=== PATIENT | male | born 1965 | race African-American/Black ===

== ENCOUNTER 2019-03-29 09:13 | Inpatient (IN) | payer OTHER ==
[2019-03-29 10:00] VITALS: BMI 22.9
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
[2019-03-29] MEDS ORDERED: IBUPROFEN 400 MG TABLET (FP) PO PRN (10:43)
[2019-03-29] MEDS ORDERED: ACETAMINOPHEN 325 MG TABLET (FP) PO PRN ×2 (10:43)
[2019-03-29] MEDS ORDERED: MAG HYDROX/AL HYDROX/SIMETH 30 ML UNIT-DOSE CUP PO PRN (10:43)
[2019-03-29] MEDS ORDERED: BISMUTH SUBSALICYLATE 524 MG/30 ML UD PO PRN (10:43)
[2019-03-29] MEDS ORDERED: MAGNESIUM HYDROX 2400MG/30ML ORAL SUSPENSION 30 ML CUP PO PRN (10:43)
[2019-03-29] MEDS ORDERED: MENTHOL/PHENOL 1 EACH UD MM PRN (10:43)
[2019-03-29] MEDS ORDERED: MAGNESIUM CITRATE 300 ML BOTTLE PO PRN (10:43)
[2019-03-29] MEDS ORDERED: METHADONE HCL 10 MG TABLET (FOR DETOX USE ONLY) PO ONE (11:30)
[2019-03-29] MEDS: hydrOXYzine PAMOATE 25 MG CAPSULE (FP) PO PRN ×2 (11:50→19:06)
[2019-03-29 16:06] LABS: ALBUMIN 3.8 g/dl (3.4-5.0); BILIRUBIN,TOTAL 0.6 mg/dL (0.2-1); BLOOD UREA NITROGEN 8.6 mg/dL (7-18); CALCIUM 8.9 mg/dL (8.5-10.1); CREATININE 0.9 mg/dL (0.55-1.3); POTASSIUM 3.6 mmol/L (3.5-5.1); TOT PROT 6.7 g/dl (6.4-8.2)
[2019-03-29 16:37] LABS: HEMATOCRIT 40.3 % (35.4-49); HEMOGLOBIN 13.6 GM/dL (11.7-16.9); MCH 29.5 pg (25.7-33.7); MCHC 33.8 g/dl (32.0-35.9); MEAN CELL VOLUME 87.2 fl (80-96); MEAN PLT VOLUME 7.4 fl (7.5-11.1); PLATELET COUNT 259 K/MM3 (134-434); RBC 4.62 M/mm3 (4.00-5.60); RDW 14.4 % (11.9-15.9); WHITE BLOOD COUNT 8.5 K/mm3 (4.0-10.0)
[2019-03-29] MEDS: cloNIDine HCL 0.1 MG TABLET PO PRN (19:05)
[2019-03-29] MEDS: THIAMINE HCL 100 MG TABLET (FP) PO SCH (22:13)
[2019-03-29] MEDS: MELATONIN 5 MG TABLETS PO PRN (22:14)
[2019-03-30] MEDS: hydrOXYzine PAMOATE 25 MG CAPSULE (FP) PO PRN ×2 (06:52→22:13)
[2019-03-30] MEDS ORDERED: METHADONE HCL 5 MG TABLET (FOR DETOX USE ONLY) PO ONE (10:00)
[2019-03-30] MEDS: PRENATAL VITAMINS W/ FOLIC ACID TABLET (FP) PO SCH (10:34)
--- NOTE | 2019-03-30 16:49 | PN ---
BHS COWS - Scale Resting Pulse: 0= [place] 80 or Below Sweatin= Chills/Flushing Restless Observation: 1= Difficult to Sit Still Pupil Size: 0= Normal to Room Light Bone or Joint Aches: 1= Mild Discomfort Runny Nose/ Eye Tearin= None GI Upset > 30mins: 3= Vomiting/Diarrhea Tremor Observation of Outstretched Hands: 0= None Yawning Observation: 1= 1-2x During Session Anxiety or Irritability: 2=Irritable/Anxious Goose Flesh Skin: 0=Smooth Skin COWS Score: 9 BHS Progress Note (SOAP) Subjective: Vomiting, Diarrhea, Anxious. Objective: PATIENT A & O X 3, OBSERVED AMBULATING ON DETOX UNIT UNASSISTED. IN NO ACUTE DISTRESS. 03/30/19 16:51 Vital Signs Temperature 99.4 F 03/30/19 13:39 Pulse Rate 58 L 03/30/19 13:39 Respiratory Rate 18 03/30/19 13:39 Blood Pressure 145/84 03/30/19 13:39 O2 Sat by Pulse Oximetry (%) Laboratory Tests 03/29/19 03/29/19 03/29/19 11:12 11:12 11:12 WBC 8.5 RBC 4.62 Hgb 13.6 Hct 40.3 MCV 87.2 MCH 29.5 MCHC 33.8 RDW 14.4 Plt Count 259 D MPV 7.4 L Sodium 143 Potassium 3.6 Chloride 108 H Carbon Dioxide 29 Anion Gap 6 L BUN 8.6 Creatinine 0.9 Est GFR (CKD-EPI)AfAm 111.05 Est GFR (CKD-EPI)NonAf 95.81 Random Glucose 71 L Calcium 8.9 Total Bilirubin 0.6 AST 18 ALT 21 Alkaline Phosphatase 48 Total Protein 6.7 Albumin 3.8 RPR Titer Nonreactive LABS NOTED. Assessment: 03/30/19 16:51 WITHDRAWAL SYMPTOMS. Plan: CONTINUE DETOX. INCREASE DAILY PO WATER INTAKE. PRN PEPTO-BISMOL PO FOR DIARRHEA.
[2019-03-30] MEDS: THIAMINE HCL 100 MG TABLET (FP) PO SCH (22:12)
[2019-03-30] MEDS: cloNIDine HCL 0.1 MG TABLET PO PRN (22:12)
[2019-03-30] MEDS: MELATONIN 5 MG TABLETS PO PRN (22:13)
[2019-03-31 09:16] VITALS: BP 131/84; PULSE 64; TEMP 97.2
[2019-03-31] MEDS ORDERED: METHADONE HCL 10 MG TABLET (FOR DETOX USE ONLY) PO ONE (10:00)
[2019-03-31] MEDS: PRENATAL VITAMINS W/ FOLIC ACID TABLET (FP) PO SCH (10:03)
--- NOTE | 2019-03-31 13:51 | DS ---
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9) 03/29/19 11:12 Plt Count 259 K/MM3 (134-434) D 03/29/19 11:12 MPV 7.4 fl (7.5-11.1) L 03/29/19 11:12 Sodium 143 mmol/L (136-145) 03/29/19 11:12 Potassium 3.6 mmol/L (3.5-5.1) 03/29/19 11:12 Chloride 108 mmol/L (98-107) H 03/29/19 11:12 Carbon Dioxide 29 mmol/L (21-32) 03/29/19 11:12 Anion Gap 6 MMOL/L (8-16) L 03/29/19 11:12 BUN 8.6 mg/dL (7-18) 03/29/19 11:12 Creatinine 0.9 mg/dL (0.55-1.3) 03/29/19 11:12 Est GFR (CKD-EPI)AfAm 111.05 03/29/19 11:12 Est GFR (CKD-EPI)NonAf 95.81 03/29/19 11:12 Random Glucose 71 mg/dL (74-106) L 03/29/19 11:12 Calcium 8.9 mg/dL (8.5-10.1) 03/29/19 11:12 Total Bilirubin 0.6 mg/dL (0.2-1) 03/29/19 11:12 AST 18 U/L (15-37) 03/29/19 11:12 ALT 21 U/L (13-61) 03/29/19 11:12 Alkaline Phosphatase 48 U/L (45-117) 03/29/19 11:12 Total Protein 6.7 g/dl (6.4-8.2) 03/29/19 11:12 Albumin 3.8 g/dl (3.4-5.0) 03/29/19 11:12 RPR Titer Nonreactive (NONREACTIVE) 03/29/19 11:12 lab noted - Treatment Hospital Course: Detox Protocol Followed, Detoxed Safely, Responded well, Discharged Condition Good, Rehab Referral Accepted Patient has Accepted a Rehab Referral to: return to suboxone provider - Medication Discharge Medications: Ambulatory Orders Naloxone HCl [Narcan] 4 mg NS ASDIR PRN #1 spray 03/31/19 - Diagnosis (1) Opioid dependence with withdrawal Status: Acute (2) Nicotine dependence Status: Acute Qualifiers: Nicotine product type: cigarettes Substance use status: in withdrawal Qualified Code(s): F17.213 - Nicotine dependence, cigarettes, with withdrawal - AMA Did Patient Leave Against Medical Advice: No COWS (PN) - Opiate Withdrawal Resting Pulse: 0= [place] 80 or Below Sweatin= Chills/Flushing Restless Observation: 0= Sits Still Pupil Size: 0= Normal to Room Light Bone or Joint Aches: 1= Mild Discomfort Runny Nose/ Eye Tearin= Nasal Congestion GI Upset > 30mins: 0= None Tremor Observation of Outstretched Hands: 1= Tremor [place], Not Seen Yawning Observation: 0= None Anxiety or Irritability: 1=Feels Anxious/Irritable Goose Flesh Skin: 0=Smooth Skin COWS Score: 5
[2019-04-01] MEDS ORDERED: METHADONE HCL 5 MG TABLET (FOR DETOX USE ONLY) PO ONE (06:00)
== END 2019-03-31 11:28 | disposition home or self-care (01) | DRG 773 ==
LOC: YASAS 09:13 → Y3N 11:03
PROVIDERS: ADMIT Surgery; ATTEND Surgery
PROC: HZ2ZZZZ Detoxification Services for Substance Abuse Treatment (ICD-10-PCS; principal; 2019-03-29)
DX: F11.23 Opioid dependence with withdrawal (principal); F12.20 Cannabis dependence, uncomplicated; F17.213 Nicotine dependence, cigarettes, with withdrawal
CPT/HCPCS: 36415; 71045-TC-FY; 80053; 85027; 86593; J0735